=== PATIENT | male | born 1990 | race Caucasian/White ===

== ENCOUNTER 2025-06-07 09:57 | Emergency (ER) | payer OTHER, SELFPAY ==
[2025-06-07 09:59] VITALS: BP 124/83; PULSE 77; RESP 14; TEMP 36.2; O2SAT 99
[2025-06-07 10:08] VITALS: BP 124/83; PULSE 77; RESP 14; TEMP 36.2; O2SAT 99
--- NOTE | 2025-06-07 10:53 | W.ED.GENAD ---
Discharge Plan Disposition Patient Disposition: Home Condition: Good Discharge Details Clinical Impression: Wild animal bite Primary Care Provider: Jose Dao ED Provider: Stephen Brito Home Meds and New Rx's Prescriptions: No Action No Known Home Meds Discharge Instructions Instructions: Rabies, Rabies Immune Globulin (Human), Rabies Vaccine, Rabies Vaccine CDC Vaccine Information Statement (VIS) Additional Instructions: Please continue to monitor finger along with any symptoms and return immediately for any new or worsening of your condition. As discussed we have 7 days after vaccination to give you the rabies immunoglobulin to neutralize any potential virus in your system. If you change your mind please return to the emergency department for administration of immunoglobulin with in this timeframe. Referrals: Jose Dao [Primary Care Provider] Referral Note: As needed for reassessment Discharge Data Discharge Date/Time-TO BE ENTERED AT DEPARTURE: 06/07/25 11:19 HPI General Mode of arrival: ambulatory. Date/Time Provider Initiated Documentation: 06/07/25 10:01. Limitations to Documentation: no limitations. Information obtained by: patient and RN notes reviewed. History of Present Illness 35 year old M presents to the emergency department with the chief complaint of Potential animal bite/rabies exposure, Patient started experiencing this day(s) (2) Patient notes no other symptoms.. Patient did receive the following treatments prior to arrival, none Related Data Home Medications ?Medication ?Instructions ?Recorded ?Confirmed Unknown [No Known Home Meds] 06/07/25 06/07/25 Allergies Allergy/AdvReac Type Severity Reaction Status Date / Time Iodinated Contrast Media AdvReac Intermediate Hives Verified 06/07/25 10:05 General Stated Complaint: AnimalBite BRYANNA: 4 Review of Systems Constitutional Constitutional: Denies chills, Denies fever(s), Denies headache(s) and Denies malaise ENT Ears, Nose, Mouth, and Throat: Denies headache(s) Cardiovascular Cardiovascular: Denies chest pain Neurologic Neurologic: Reports system reviewed and no additional complaints, except as documented and Denies headache(s) Psychiatric Psychiatric: Reports anxiety Exam Const General: cooperative, no acute distress and not ill appearing Orientation: alert, awake and oriented x3 HENMT Mouth: moist mucous membranes Resp Effort & Inspection: normal respiratory effort, able to speak in complete sentences and no respiratory distress Skin General skin exam: no rashes or lesions noted Neuro General: patient alert, patient awake, patient oriented x3, moves all extremities and no focal motor deficits Extrem Right upper extremity: normal to inspection and normal capillary refill Course Vital Signs Vital signs: Vital Signs Temperature 36.2 C L 06/07/25 09:59 Pulse 77 06/07/25 09:59 Respiratory Rate 14 06/07/25 09:59 Blood Pressure 124/83 06/07/25 09:59 Pulse Oximetry 99 06/07/25 09:59 Temperature 36.2 C L 06/07/25 10:08 Temperature Source Tympanic 06/07/25 10:08 Pulse 77 06/07/25 10:08 Respiratory Rate 14 06/07/25 10:08 Blood Pressure 124/83 06/07/25 10:08 Blood Pressure Position Sitting 06/07/25 10:08 Pulse Oximetry 99 06/07/25 10:08 Oxygen Delivery Method Room Air 06/07/25 10:08 Oxygen Flow Rate 0 06/07/25 10:08 Pain Level 0 06/07/25 10:08 Medical Decision Making Patient presenting to the emergency department for chief complaint of possible animal bite and rabies exposure. Patient states that he was attempting to help his cats that were trying to kill a weasel 2 days ago. During this episode patient thought he may have been bitten on the right index finger by the weasel but had no obvious break of skin, no obvious wound, no bleeding and no injury noted but was concerned. Due to this concern he is presenting to the emergency department. He states no abnormal behavior by his animals and that the weasel was protecting itself during the incident but otherwise does not know how it was acting prior to the cats trying to kill it. Physical exam is unremarkable for any obvious injury and wound and be on some situational anxiety patient is otherwise well appearing healthy and no concerning or abnormal vital signs. Discussed with patient treatment with vaccination and immunoglobulin along with the differing opinions of the WHO with no obvious bite or wound and the CDC. Mainly the difference of to give immunoglobulin versus vaccination alone. Discussed with patient the varied approaches and shared decision-making was utilized. After discussion of this along with informing the patient that he may change his mind up to 7 days later patient decided to proceed with vaccination alone but again he was encouraged to return for immunoglobulin if he changed his mind specifically informed that he would need to do this within 7 days of vaccination. 4 part series was ordered for patient along with monitoring of symptoms. Patient's tetanus is up-to-date After discussion of diagnosis and plan of care patient has no further needs, questions, or concerns and states clear understanding to return to the emergency department for any worsening symptoms. This documentation was generated using [employer] [place] dictation system, please disregard any oddities of phrase or misspellings. PFSH All Active Problems (Updated 06/07/25 @ 11:05 by Stephen Brito NP) Wild animal bite (Acute) Social History Smoking/Tobacco Use Status: Never Smoking risk assessment performed?: Yes Alcohol Intake: current Alcohol Intake frequency: a few times a month Drug use: Never Substance use type: does not use Do you feel safe at home: Yes Do you feel safe in your relationship?: Yes
[2025-06-07] MEDS: Rabies vaccine (PCEC)/PF 2.5 UNITS/ML VIAL IM (11:02)
== END 2025-06-07 11:19 | disposition home or self-care (01) ==
LOC: ER 11:38
PROVIDERS: Emergency Provider Nurse Practitioner Family; PCP Nurse Practitioner Family
DX: S60.470A Other superficial bite of right index finger, initial encounter (principal); W55.81XA Bitten by other mammals, initial encounter; Y93.K9 Activity, other involving animal care; Y92.89 Other specified places as the place of occurrence of the external cause
CPT/HCPCS: 90471; 99283; 90675

== ENCOUNTER 2025-06-14 12:00 | Outpatient (RCR) | payer OTHER, SELFPAY ==
[2025-06-10] MEDS: Rabies vaccine (PCEC)/PF 2.5 UNITS/ML VIAL IM (11:40)
[2025-06-14] MEDS: Rabies vaccine (PCEC)/PF 2.5 UNITS/ML VIAL (12:07)
== END 2025-06-20 23:59 | disposition home or self-care (01) ==
LOC: INF 12:00
PROVIDERS: PCP Nurse Practitioner Family; Visit Provider Nurse Practitioner Family
DX: Z20.3 Contact with and (suspected) exposure to rabies (principal); Z29.14 Encounter for prophylactic rabies immune globulin
CPT/HCPCS: 90471; 96372; 90675

== ENCOUNTER 2025-06-21 01:56 | Outpatient (RCR) | payer OTHER, SELFPAY ==
[2025-06-21] MEDS: Rabies vaccine (PCEC)/PF 2.5 UNITS/ML VIAL IM (12:14)
== END 2025-07-21 23:59 | disposition home or self-care (01) ==
LOC: INF 01:56
PROVIDERS: PCP Nurse Practitioner Family; Visit Provider Nurse Practitioner Family
DX: Z20.3 Contact with and (suspected) exposure to rabies (principal); Z29.14 Encounter for prophylactic rabies immune globulin
CPT/HCPCS: 90471; 90675